=== PATIENT | female | born 1950 | race Caucasian/White ===

== ENCOUNTER 2016-03-30 09:50 | Outpatient (RCR) | payer MEDICARE, OTHER ==
[2016-01-14 14:51] VITALS: BP 151/76
[~2016-03-30 09:50] MED LIST changes: -NOVOLOG 100U100 U/M1 SC; -NOVOLOG MI100 UNIT/1 SC; -TOUJEO SOL300 UNIT/1 SQ; -VENLAFAXINE150 MG PO; -VICTOZA6 MG/ML SC; -VITAMIN C500 MG PO
[2016-04-10] MEDS ORDERED: VENLAFAXINE150 MG PO (14:18)
[2016-04-10] MEDS ORDERED: VITAMIN C500 MG PO (14:18)
[2016-04-10] MEDS ORDERED: NOVOLOG 100U100 U/M1 SC (14:32)
[2016-04-10] MEDS ORDERED: TOUJEO SOL300 UNIT/1 SQ (14:46)
[2016-04-10] MEDS ORDERED: VICTOZA6 MG/ML SC (15:26)
[2016-04-10] MEDS ORDERED: NOVOLOG MI100 UNIT/1 SC (15:27)
== END 2016-04-27 13:22 ==
LOC: OPPGERO 09:50
DX: F33.1 Major depressive disorder, recurrent, moderate (principal)

== ENCOUNTER → 2016-03-30 | Outpatient (CLI) | payer MEDICARE, OTHER ==
[~2016-03-30] MED LIST: AMARYL4 M1 PO; AMBIEN10 MG PO; EFFEXOR XR150 M1 PO; GABAPENTIN100 MG PO; LAMOTRIGINE100 MG PO; LINZESS145 MCG PO; LISINOPRIL20 MG PO; NOVOLOG 100U100 U/M1 SC; NOVOLOG MI100 UNIT/1 SC; REGLAN10 M2 PO; SIMVASTATIN40 M1 PO; TOUJEO SOL300 UNIT/1 SQ; VENLAFAXINE150 MG PO; VICTOZA6 MG/ML SC; VITAMIN C500 MG PO
== END ==
LOC: LAB 14:27
DX: E13.9 Other specified diabetes mellitus without complications (principal); I10 Essential (primary) hypertension; F33.1 Major depressive disorder, recurrent, moderate

== ENCOUNTER 2016-04-10 14:11 | Emergency (ER) | payer MEDICARE, OTHER ==
[2016-04-10] MEDS ORDERED: VITAMIN C500 MG PO (14:18)
[2016-04-10] MEDS ORDERED: VENLAFAXINE150 MG PO (14:18)
[2016-04-10] MEDS ORDERED: NOVOLOG 100U100 U/M1 SC (14:32)
[2016-04-10] MEDS ORDERED: TOUJEO SOL300 UNIT/1 SQ (14:46)
[2016-04-10] MEDS ORDERED: VICTOZA6 MG/ML SC (15:26)
[2016-04-10] MEDS ORDERED: NOVOLOG MI100 UNIT/1 SC (15:27)
[2016-04-10 19:50] VITALS: BP 161/77
== END 2016-04-10 19:55 | disposition home or self-care (01) ==
LOC: ED 14:11
DX: E11.65 Type 2 diabetes mellitus with hyperglycemia (principal); Z79.4 Long term (current) use of insulin
CPT/HCPCS: J1815; J7030

== ENCOUNTER 2016-04-28 10:39 | Outpatient (RCR) | payer MEDICARE, OTHER ==
[~2016-04-28 10:39] MED LIST changes: +NOVOLOG 100U100 U/M1 SC; +NOVOLOG MI100 UNIT/1 SC; +TOUJEO SOL300 UNIT/1 SQ; +VENLAFAXINE150 MG PO; +VICTOZA6 MG/ML SC; +VITAMIN C500 MG PO
== END 2016-05-25 10:27 ==
LOC: OPPGERO 10:39
DX: F33.1 Major depressive disorder, recurrent, moderate (principal)

== ENCOUNTER 2016-05-26 07:49 | Outpatient (RCR) | payer MEDICARE, OTHER | END 2016-06-25 15:15 | LOC: OPPGERO 07:49 | DX: F33.1 Major depressive disorder, recurrent, moderate (principal) ==

== ENCOUNTER → 2016-06-01 | Outpatient (CLI) | payer MEDICARE, OTHER | LOC: MAMMO 09:42 | DX: Z12.31 Encounter for screening mammogram for malignant neoplasm of breast (principal) | CPT/HCPCS: G0202 ==

== ENCOUNTER → 2016-06-21 | Outpatient (CLI) | payer MEDICARE, OTHER | LOC: LAB 09:13 | DX: E13.9 Other specified diabetes mellitus without complications (principal); I10 Essential (primary) hypertension; F33.1 Major depressive disorder, recurrent, moderate ==

== ENCOUNTER → 2016-07-26 | Outpatient (CLI) | payer MEDICARE, OTHER | LOC: LAB 10:13 | DX: R20.2 Paresthesia of skin (principal); D50.9 Iron deficiency anemia, unspecified; E13.9 Other specified diabetes mellitus without complications ==

== ENCOUNTER → 2016-11-01 | Outpatient (CLI) | payer MEDICARE, OTHER | LOC: LAB 14:54 | DX: E11.9 Type 2 diabetes mellitus without complications (principal); I10 Essential (primary) hypertension ==